=== PATIENT | male | born 1950 | race Caucasian/White ===

== ENCOUNTER 2021-06-09 11:33 | Emergency (ER) | payer MEDICARE, SELFPAY ==
[2021-06-09 11:49] VITALS: BP 157/90; PULSE 69; RESP 16; TEMP 36.6; O2SAT 98
--- NOTE | 2021-06-09 12:28 | ED.URI ---
HPI - URI/Sore Throat General Chief Complaint: Upper Respiratory Infection Stated Complaint: upper respiratory infection Time Seen by Provider: 06/09/21 12:01 Source: patient and RN notes reviewed Mode of arrival: ambulatory Limitations: no limitations History of Present Illness HPI Narrative: Patient presents today with a 3-day history of cough, postnasal drip, nasal congestion, itchy eyes, fatigue. Denies fever, shortness of breath, sore throat. He has been taking NyQuil with some relief. He has been vaccinated against COVID-19. MD elicited complaint: cough Related Data Home Medications Medication Instructions Recorded Confirmed levothyroxine 137 mcg PO DAILY 06/09/21 06/09/21 lisinopril 10 mg PO DAILY 06/09/21 06/09/21 Allergies Allergy/AdvReac Type Severity Reaction Status Date / Time NKDA Allergy Unknown Other Uncoded 06/09/21 11:45 Review of Systems Review of Systems: CONSTITUTIONAL: Denies body aches, fever, chills, or sweats.+ Fatigue EYES: Denies visual changes, redness, or discharge. ENT: Denies rhinorrhea, sore throat, or otalgia.+ Congestion, postnasal drip CARDIOVASCULAR: Denies chest pain, palpitations, or edema. RESPIRATORY: Denies dyspnea.+ Cough GASTROINTESTINAL: Denies abdominal pain, nausea, vomiting, or diarrhea. GENITOURINARY: Denies dysuria or hematuria. SKIN: Denies rash, itching, or wounds. MUSCULOSKELETAL: Denies back pain, joint pain, or myalgia. NEUROLOGIC: Denies headache, numbness, tingling, or weakness. PSYCH: Denies depression or anxiety. [facility] Past Medical History Medical History (Updated 06/09/21 @ 12:32 by Mary Grace Schmitt, [facility], ) Hypertension Hypothyroidism Surgical History Surgical History (Updated 06/09/21 @ 12:30 by Mary Grace Schmitt, [facility], ) History of appendectomy Social History Social History Gender identity (if verbalized by the patient): Male Sexual Orientation (if Verbalized by the Patient): Straight or Heterosexual Comments At time of signature, I have reviewed and agree with nursing past medical, surgical, social and family history unless otherwise noted. Please see nursing chart for further information. There is no relevant family history pertinent to the presenting complaint Exam Narrative: GENERAL: Well-appearing, well-nourished, and in no acute distress. HEAD: Normocephalic, atraumatic. EYES: EOMI. No redness or drainage. Conjunctivae normal. ENT: Mucous membranes pink and moist. Nares mildly congested. No rhinorrhea. TMs normal bilaterally. Throat normal. Uvula midline. NECK: Normal AROM. Supple. No lymphadenopathy. CHEST: No respiratory distress. Clear to auscultation. HEART: Regular rate and rhythm. No murmur appreciated. Normal peripheral pulses. EXTREMITIES: Normal range of motion. No edema. SKIN: Warm, dry, no rash. Capillary refill normal. Normal skin turgor. NEURO: No focal deficits. Alert and oriented x3. Gait steady. PSYCH: Normal affect. No signs of depression or anxiety. Course Vital Signs Vital signs: Vital Signs Temperature 97.9 F 06/09/21 11:49 Pulse Rate 69 06/09/21 11:49 Respiratory Rate 16 06/09/21 11:49 Blood Pressure 157/90 H 06/09/21 11:49 Pulse Oximetry 98 06/09/21 11:49 Temperature 97.9 F 06/09/21 11:49 Pulse Rate 69 06/09/21 11:49 Respiratory Rate 16 06/09/21 11:49 Blood Pressure 157/90 H 06/09/21 11:49 Pulse Oximetry 98 06/09/21 11:49 Reviewed. Pt has been instructed to follow up with his PCP regarding his elevated blood pressure today. MDM - URI/Sore Throat Differential Diagnosis Differential diagnosis: Likely upper respiratory infection, sinusitis, viral infection, bronchitis and other (COVID-19) Lab Data Attestation: I reviewed the patient's lab results. Lab results narrative: Rapid COVID-19 test negative Critical Care Time Critical Care Time Critical Care Time: No Discharge Plan Discharge Clinical Impression: Upper respiratory infection Quali
== END 2021-06-09 12:38 | disposition home or self-care (01) ==
PROVIDERS: Emergency Provider Nurse Practitioner; PCP Family Medicine
DX: J06.9 Acute upper respiratory infection, unspecified (principal); Z20.822 Contact with and (suspected) exposure to COVID-19; I10 Essential (primary) hypertension; E03.9 Hypothyroidism, unspecified
CPT/HCPCS: 87426; 99213; C9803; G0463

== ENCOUNTER → 2022-01-04 11:01 | Outpatient (CLI) | payer MEDICARE, SELFPAY ==
--- NOTE | ~2022-01-04 | MR_ITS ---
EXAMINATION: MR shoulder RT wo con DATE: 01/04/2022 11:50 INDICATION: Right shoulder injury TECHNIQUE: Magnetic resonance imaging (MRI) of the right shoulder was performed without intravenous c ontrast. Sequences included axial PD-weighted FS FSE, coronal oblique PD-weighted FS FSE, coronal obl ique T2-weighted FS FSE, sagittal PD-weighted FS FSE, and sagittal T1-weighted SE. COMPARISON: None. FINDINGS: Coracoacromial arch: The acromion undersurface is curved in morphology (type II). There is a moderate-sized anterior subac romial spur at the acromial insertion of the otherwise normal coracoacromial ligament. There is later al downsloping of the acromion with additional small spur along the lateral margin of the acromion. M ild acromioclavicular osteoarthritis. Rotator cuff: Full-thickness supraspinatus and infraspinatus tear extending 3 cm AP along the posterior three fourt hs of the superior facet and anterior two thirds of the middle facet footplates of the greater tubero sity. The anterior most fibers of the supraspinatus tendon remain intact there is severe tendinopathy with disorganized appearance to the tendon fibers of the posterior most infraspinatus tendon but wit hout a discrete tear defect. There is proximally 3 similar maximal medial retraction of the supraspin atus tear margin which extends across the apex of the humeral head with moderate tendinopathy. The te res minor tendon is normal. Moderate subscapularis tendinopathy with mild partial thickness articular sided tear along the medial margin of the lesser tuberosity footplate of the subscapularis tendon wh ich involves up to one third of the tendon thickness. Mild fatty atrophy of the supraspinatus and inf raspinatus muscle bellies. Moderate fatty atrophy of the subscapularis muscle belly. Biceps tendon, glenoid labrum and glenohumeral cartilage: Full-thickness tear of the long head biceps tendon with the distal tear margin retracted below the in ferior margin of the field of imaging and with the intra-articular portion of the tendon is folded ba ck upon itself in the superior recess along the undersurface of the supraspinatus tendon. Relatively well-defined linear labral tear at the 9:00-10:00 position of the posterior glenoid labrum. There is more irregular degenerative tearing scattered throughout the remainder of the labrum. Mild glenohumer al osteoarthritis with partial thickness cartilage loss at the posterior superior glenoid. Additional partial thickness cartilage loss with chondral surface irregularity along the superolateral aspect o f the humeral head. Fluid: Moderate-sized glenohumeral joint effusion with proportional extension of fluid distally along the lo ng head biceps tendon sheath. Mild synovitis is seen at the axillary and subcoracoid recesses. There is extension of a moderate amount of fluid along with some additional synovitis into the subacromial/ subdeltoid bursa. No loose osteochondral bodies. Bones: Mild cephalad subluxation of the humeral head with respect the glenoid with narrowing of the subacrom ial space which measures less than 2.5 mm between the cortices of the humeral head and undersurface o f the acromion. No fracture or pathologic marrow replacing process. IMPRESSION: 1. Moderate to severe tendinopathy with large full-thickness tear involving the majority of the supra spinatus tendon and two thirds of the infraspinatus tendon. 2. Additional moderate tendinopathy and mild partial thickness articular sided tear of the distal sub scapularis tendon. 3. Mild glenohumeral osteoarthritis with diffuse labral degeneration and more well-defined posterior labral tear. 4. Full-thickness tear of the long head biceps tendon. 5. Mild acromioclavicular osteoarthritis. Reviewed, dictated and finalized at location A. Electronically signed b
== END ==
PROVIDERS: PCP Family Medicine; Visit Provider Family Medicine
DX: S46.111A Strain of muscle, fascia and tendon of long head of biceps, right arm, initial encounter (principal); X58.XXXA Exposure to other specified factors, initial encounter; M19.011 Primary osteoarthritis, right shoulder
CPT/HCPCS: 73221